=== PATIENT | male | born 1990 | race Caucasian/White ===

== ENCOUNTER 2018-08-01 23:17 | Emergency (ER) | payer MEDICAID ==
[~2018-08-01] VITALS: Ht 170.2 cm; Wt 76.0 kg
[2018-08-02] MEDS ORDERED: IBUPROFEN 600MG TABLET PO ONE (00:15)
[2018-08-02 00:31] VITALS: BP 129/85
== END 2018-08-02 01:56 | disposition home or self-care (01) ==
LOC: ER 23:17
DX: S93.402A Sprain of unspecified ligament of left ankle, initial encounter (principal); F12.10 Cannabis abuse, uncomplicated; W10.8XXA Fall (on) (from) other stairs and steps, initial encounter; Y93.89 Activity, other specified; Y92.89 Other specified places as the place of occurrence of the external cause; Y99.8 Other external cause status
CPT/HCPCS: 73610; 73630; 99283